=== PATIENT | female | born 1935 | race Caucasian/White ===

== ENCOUNTER 2019-08-23 14:38 | Emergency (ER) | payer MEDICARE ==
[~2019-08-23] VITALS: Ht 167.6 cm; Wt 70.4 kg
[~2019-08-23 14:38] MED LIST: HYDR-3237 PO; INSU100V8 SQ; LEVO137T3 PO; LISI5TAB7 PO; NITR100C57 PO; OMEP-110 PO; OMEP40CA42 PO; ROSU5TAB PO; ZOLP5TAB PO
[2019-08-23 14:50] VITALS: BP 173/86
[2019-08-23] MEDS ORDERED: PLEASE ENTER HEIGHT AND WEIGHT MC SCH (14:55)
[2019-08-23] MEDS ORDERED: SODIUM CHLORIDE FLUSH 10ML SYR IVF ONE (15:00)
[2019-08-23 15:37] LABS: BASOPHILS # (AUTO) 0.03 x10^3/uL (0-0.1); BASOPHILS % (AUTO) 0 % (0-1); EOSINOPHILS # (AUTO) 0.37 x10^3/uL (0-0.4); EOSINOPHILS % (AUTO) 4 % (1-7); LYMPHOCYTES # (AUTO) 2.14 x10^3/uL (1-3.4); LYMPHOCYTES % (AUTO) 23 % (22-44); MD NO; MEAN CORPUSCULAR HEMOGLOBIN 29.8 pg (27.0-34.8); MEAN CORPUSCULAR HGB CONC 32.2 g/dL (32.4-35.8); MEAN CORPUSCULAR VOLUME 92.5 fL (80-100); MEAN PLATELET VOLUME 8.4 fL (7.4-10.4); MONOCYTES # (AUTO) 0.69 x10^3/uL (0.2-0.8); MONOCYTES % (AUTO) 8 % (2-9); NEUTROPHILS # (AUTO) 5.96 x10^3/uL (1.8-6.8); NEUTROPHILS % (AUTO) 65 % (42-75); PLATELET COUNT 338 x10^3/uL (130-400); RED BLOOD COUNT 5.35 x10^6/uL (3.82-5.3); RED CELL DISTRIBUTION WIDTH 14.9 % (9.6-15.2)
[2019-08-23 15:45] LABS: ALANINE AMINOTRANSFERASE 23 U/L (12-78); ALBUMIN 3.3 g/dL (3.4-5.0); ANION GAP 7 mmol/L (5-15); CALCIUM 8.6 mg/dL (8.5-10.1); CHLORIDE 109 mmol/L (98-107); CREATININE 1.23 mg/dL (0.55-1.02)
[2019-08-23 15:48] LABS: ALKALINE PHOSPHATASE 133 U/L (45-117); BILIRUBIN,TOTAL 0.3 mg/dL (0.2-1.0); TOTAL PROTEIN 7.2 g/dL (6.4-8.2)
[2019-08-23 15:51] LABS: INTERNATIONAL NORMALIZED RATIO 1.09 (0.93-1.1); PROTHROMBIN TIME 11.4 Seconds (9.6-11.5)
--- NOTE | 2019-08-23 16:54 | NUR ---
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
--- NOTE | 2019-08-23 17:11 | NUR ---
ASSUMED CARE OF PATIENT IN ROOM 17. PT C/O R LOW LEG PAIN X 4 DAYS WITH CRAMPING. PT ALSO C/O NAUSEA, VOMITING AFTER EATING.
--- NOTE | 2019-08-23 17:14 | NUR ---
DR. [place] AT BEDSIDE.
[2019-08-23] MEDS ORDERED: LISI-167 PO (17:31)
[2019-08-23] MEDS ORDERED: LEVO137T3 PO (17:31)
[2019-08-23] MEDS ORDERED: BUPR150T73 PO (17:32)
[2019-08-23] MEDS ORDERED: AMLO2.5T5 PO (17:34)
[2019-08-23 17:35] LABS: MICROSCOPIC NOT IND
[2019-08-23 17:55] LABS: CULTURE INDICATED? NO
[2019-08-23] MEDS ORDERED: FLUCONAZOLE 100 MG TABLET PO ONE (19:00)
[2019-08-23] MEDS ORDERED: FLUCONAZOLE 100 MG TABLET ONE (19:07)
== END 2019-08-23 19:14 | disposition home or self-care (01) ==
LOC: ED 19:07
DX: M79.661 Pain in right lower leg (principal); R11.10 Vomiting, unspecified; I10 Essential (primary) hypertension; E11.9 Type 2 diabetes mellitus without complications; J44.9 Chronic obstructive pulmonary disease, unspecified; Z90.49 Acquired absence of other specified parts of digestive tract; Z86.718 Personal history of other venous thrombosis and embolism
CPT/HCPCS: 36415; 80053; 81003; 83690; 85025; 85610; 85730; 99284